=== PATIENT | female | born 1985 | race American Indian/Alaskan Native ===

== ENCOUNTER 2017-04-18 22:03 | Emergency (ER) | payer OTHER ==
[2017-04-18 22:35] VITALS: BMI 33.7
[2017-04-18 22:48] VITALS: RESP 18; TEMP 98.2
--- NOTE | 2017-04-18 22:51 | ED PDOC ---
Arrival/HPI <Nayana Oakes - Last Filed: 04/19/17 00:16> <Umang Ruiz - Last Filed: 04/19/17 00:50> - General Chief Complaint: Headache Time Seen by Provider: 04/18/17 22:12 - History of Present Illness Narrative History of Present Illness (Text): 04/18/17 22:51 32 y/o F w/ PMHx of miscarriage 4mons ago presents to the ED w/ c/o Headache x 3days and abd pain x1wk. Pt reports abd cramping x1wk. pain intermittent, accompanied by groin pressure. pt reports cramping worsens w/ urination especially when w/holding urination for any length of time. Pt admits to increased urgency w/o increased frequency or dysuria. Pt also admits to constipation w/ last BM 3days ago, which is unusual for the pt. Pt reports headache x3days. Pt has Hx of headaches but never this long or this severe. Admits to assoc. sensitivity to light and sound. Pain localized to L frontal. Pain is mild at baseline w/ intermittent spikes in intensity. associated nausea , dizziness, and sun spots during peaks. Pt has not taken anything for the pain due to possible . LMP 03/20/17. (Nayana Oakes) Past Medical History - Provider Review Nursing Documentation Reviewed: Yes - Infectious Disease Hx of Infectious Diseases: None - Genitourinary/Gynecological Other/Comment: Ovarian Cyst - Psychiatric Hx Substance Use: No - Surgical History Other/Comment: miscarriage - Anesthesia Hx Anesthesia: No <Nayana Oakes - Last Filed: 04/19/17 00:16> Family/Social History Family/Social History: No Known Family HX Smoking Status: Light Smoker < 10 Cigarettes Daily Hx Alcohol Use: Yes Frequency of alcohol use: Socially Hx Substance Use: No <Nayana Oakes - Last Filed: 04/19/17 00:16> Allergies/Home Meds <Nayana Oakes - Last Filed: 04/19/17 00:16> <Umang Ruiz - Last Filed: 04/19/17 00:50> Allergies/Adverse Reactions: Allergies No Known Allergies Allergy (Verified 04/18/17 22:19) Home Medications: Home Meds Medication Instructions Recorded Confirmed No Known Home Med 04/18/17 04/18/17 Review of Systems - Physician Review All systems were reviewed & negative as marked: Yes - Review of Systems Eyes: absent: Vision Changes Cardiovascular: absent: Chest Pain <Nayana Oakes - Last Filed: 04/19/17 00:16> Physical Exam Vital Signs Reviewed: Yes Temperature: Afebrile Blood Pressure: Hypertensive Pulse: Regular Respiratory Rate: Normal Appearance: Positive for: Well-Appearing, Comfortable Pain Distress: Mild Mental Status: Positive for: Alert and Oriented X 3 - Systems Exam Head: Present: Atraumatic, Normocephalic Pupils: Present: PERRL Extroacular Muscles: Present: EOMI Mouth: Present: Moist Mucous Membranes Neck: Present: Normal Range of Motion Respiratory/Chest: Present: Clear to Auscultation, Good Air Exchange. No: Respiratory Distress, Accessory Muscle Use Cardiovascular: Present: Regular Rate and Rhythm, Normal S1, S2. No: Murmurs Abdomen: Present: Tenderness (minimal TTP suprapubic). No: Distention, Peritoneal Signs Upper Extremity: Present: Normal Inspection Lower Extremity: Present: Normal Inspection Neurological: Present: GCS=15, CN II-XII Intact, Speech Normal Skin: Present: Warm, Dry, Normal Color Psychiatric: Present: Alert, Oriented x 3, Normal Affect, Normal Mood <Nayana Oakes - Last Filed: 04/19/17 00:16> Medical Decision Making - Lab Interpretations I have reviewed the lab results: Yes - RAD Interpretation [employer]el Drawing Operator: Radiologist <Nayana Oakes - Last Filed: 04/19/17 00:16> - Lab Interpretations I have reviewed the lab results: Yes - RAD Interpretation [employer] Dowel Drawing Operator: Radiologist <Umang Ruiz - Last Filed: 04/19/17 00:50> ED Course and Treatment: 04/18/17 23:16 32 y/o F w/ headache and abd pain. - CBC, CMP, lipase - Urinalysis - Urine preganacy (+) - B-HCG quant - transvaginal US (Nayana Oakes) Pt seen and evaluated with resident. Pt presented complaining of headache for 3 days and abdominal cramping for 1 week. Aware and agree with HPI, clinical findings, plan, and management. Plan: -- Transvaginal US -- Labs, beta-HCG, lipase -- Urinalysis, urine culture -- IV fluids -- Reglan -- Benadryl -- Reassess and disposition (Umang Ruiz) - Lab Interpretations Lab Results: 04/18/17 23:05 04/18/17 23:05 Lab Results 04/18/17 23:05: Beta HCG, Quant 255.79 H 04/18/17 23:05: Sodium 138, Potassium 4.0, Chloride 104, Carbon Dioxide 25, Anion Gap 13, BUN 15, Creatinine 0.9, Est GFR ( Amer) > 60, Est GFR (Non- Af Amer) > 60, Random Glucose 92, Calcium 9.9, Total Bilirubin 0.4, AST 21, ALT 22, Alkaline Phosphatase 82, Total Protein 8.2, Albumin 4.6, Globulin 3.7, Albumin/Globulin Ratio 1.2, Lipase 240 04/18/17 23:05: WBC 9.7, RBC 4.46, Hgb 14.0, Hct 39.0, MCV 87.4, MCH 31.4, MCHC 35.9, RDW 12.7, Plt Count 268, MPV 8.9, Gran % 58.3, Lymph % (Auto) 35.5 H, [place] % (Auto) 3.5, Eos % (Auto) 2.5, Baso % (Auto) 0.2, Gran # 5.68, Lymph # 3.5 H, [place] # 0.3, Eos # 0.2, Baso # 0.02 04/18/17 23:00: Urine Color Yellow, Urine Appearance Clear, Urine pH 6.5, Ur Specific [place] 1.020, Urine Protein Negative, Urine Glucose (UA) Negative, Urine Ketones Negative, Urine Blood Negative, Urine Nitrate Negative, Urine Bilirubin Negative, Urine Urobilinogen 1.0 H, Ur Leukocyte Esterase Trace H, Urine RBC 0 - 2, Urine WBC 2 - 5, Ur Epithelial Cells 3 - 4, Urine Bacteria Occ - RAD Interpretation Narrative RAD Interpretations (Text): 04/19/17 00:00 US results: FINDINGS: The uterus measures 10 x 5 x 7 cm. There is a posterior uterine fibroid to the left of midline measuring 4 x 2.5 x 3 cm. No intrauterine gestational sac. The endometrium measures 19 mm. The right ovary is not visualized secondary to surgical removal. The left ovary is normal. Flow is demonstrated in the left ovary. No adnexal masses. There is no significant free fluid. IMPRESSION: No intra-or extrauterine gestational sac. In a patient with a positive test, differential diagnosis includes early IUP, AB, and ectopic . Short term serial beta- hCG levels are recommended along with follow-up ultrasound. (Nayana Oakes) Radiology Orders: 04/18/17 23:00 OB TRANSVAGINAL [US] Urgent - Medication Orders Current Medication Orders: Discontinued Medications Diphenhydramine HCl (Benadryl) 25 mg IVP STAT STA Stop: 04/18/17 22:59 Last Admin: 04/18/17 23:52 Dose: 25 mg Sodium Chloride (Sodium Chloride 0.9%) 500 mls @ 999 mls/hr IV .Q31M STA Stop: 04/18/17 23:28 Last Admin: 04/18/17 23:52 Dose: 999 mls/hr Metoclopramide HCl (Reglan) 10 mg IVP STAT STA Stop: 04/18/17 22:59 Last Admin: 04/18/17 23:52 Dose: 10 mg - PA / SILO OPERATOR / Resident Statement SHAD has reviewed & agrees with the documentation as recorded. SHAD has examined the patient and agrees with the treatment plan. <Umang Ruiz - Last Filed: 04/19/17 00:50> Disposition/Present on Arrival - Present on Arrival Any Indicators Present on Arrival: No History of DVT/PE: No History of Uncontrolled Diabetes: No Urinary Catheter: No History of Decub. Ulcer: No History Surgical Site Infection Following: None - Disposition Have Diagnosis and Disposition been Completed?: Yes Disposition Time: 00:15 Patient Plan: Discharge <Nayana Oakes - Last Filed: 04/19/17 00:16> <Umang Ruiz - Last Filed: 04/19/17 00:50> - Disposition Diagnosis: Disposition: HOME/ ROUTINE Patient Problems: Current Active Problems Problem Status Onset Acute Condition: IMPROVED Discharge Instructions (ExitCare): (ED) Additional Instructions: Follow up w/ Associate Consulting Engineer this week Tylenol PRN headache
[2017-04-18] MEDS ORDERED: Sodium Chloride 0.9% 500 ML IV STA (22:58)
[2017-04-18] MEDS ORDERED: DiphenhydrAMINE 50 mg/ml Inj IVP STA (22:58)
[2017-04-18 23:13] LABS: ADD MANUAL DIFF? NO
[2017-04-18 23:19] LABS: BASO # 0.02 K/mm3 (0.0-2.0); BASO % 0.2 % (0.0-3.0); EOS # 0.2 (0.0-0.7); EOS % 2.5 % (1.5-5.0); GRAN # 5.68 (1.4-6.5); GRAN % 58.3 % (50.0-68.0); LYMPH # 3.5 (1.2-3.4); LYMPH % 35.5 % (22.0-35.0); MEAN CELL VOLUME 87.4 fL (80.0-105.0); MEAN CORPUSCULAR HEMOGLOBIN 31.4 pg (25.0-35.0); MEAN CORPUSCULAR HGB CONC 35.9 g/dl (31.0-37.0); MEAN PLATELET VOLUME 8.9 fl (7.0-11.0); MONO # 0.3 (0.1-0.6); MONO % 3.5 % (1.0-6.0); PLATELET COUNT 268 10^3/uL (120.0-450.0); RED CELL DISTRIBUTION WIDTH 12.7 % (11.5-14.5); WHITE BLOOD COUNT 9.7 10^3/ul (4.5-11.0)
[2017-04-18 23:26] LABS: ALB/GLOB RATIO 1.2 (1.1-1.8); ALKALINE PHOSPHATASE 82 U/L (38-133); ALT/SGPT 22 U/L (7-56); AST/SGOT 21 U/L (15-39); BILIRUBIN,TOTAL 0.4 mg/dL (0.2-1.3); BLOOD UREA NITROGEN 15 mg/dL (7-21); CALCIUM 9.9 mg/dL (8.4-10.5); CARBON DIOXIDE 25 mmol/L (21-33); CHLORIDE 104 mmol/L (98-107); GFR AFRICAN-AMERICAN > 60; GLUCOSE,RANDOM 92 mg/dL (70-110); LIPASE 240 U/L (23-300); SODIUM 138 mmol/L (132-148); TOTAL PROTEIN 8.2 g/dL (5.8-8.3)
[2017-04-18 23:35] LABS: PH,URINE 6.5 (4.7-8.0); URINE BILIRUBIN NEGATIVE (NEGATIVE); URINE BLOOD NEGATIVE (NEGATIVE); URINE GLUCOSE (UA) NEGATIVE (NEGATIVE); URINE KETONE NEGATIVE (NEGATIVE); URINE LEUKOCYTE ESTERASE TRACE Leu/uL (NEGATIVE); URINE PROTEIN NEGATIVE mg/dL (<30 mg/dL)
[2017-04-18 23:38] LABS: URINE APPEARANCE CLEAR (CLEAR); URINE COLOR YELLOW (YELLOW)
[2017-04-18 23:53] LABS: URINE BACTERIA OCC (NEG); URINE RBC 0 - 2 /hpf (0-2)
--- NOTE | 2017-04-18 23:59 | US ---
EXAM: US , Transvaginal CLINICAL HISTORY: 32 years old, female; Pain; Other: Pelvic pain/spotting/+ucg; Gestational age or lmp: 03/20/2017; Prior surgery; Surgery date: 6+ months; Surgery type: Rt ov removed; Additional info: Positive urine pregnanacy; Abd pain TECHNIQUE: Real-time transvaginal obstetrical ultrasound of the maternal pelvis and a first trimester with image documentation. Transvaginal imaging was used for better evaluation of the fetus and adnexa. EXAM DATE/TIME: 04/18/2017 11:00 PM COMPARISON: No relevant prior studies available. FINDINGS: The uterus measures 10 x 5 x 7 cm. There is a posterior uterine fibroid to the left of midline measuring 4 x 2.5 x 3 cm. No intrauterine gestational sac. The endometrium measures 19 mm. The right ovary is not visualized secondary to surgical removal. The left ovary is normal. Flow is demonstrated in the left ovary. No adnexal masses. There is no significant free fluid. IMPRESSION: No intra-or extrauterine gestational sac. In a patient with a positive test, differential diagnosis includes early IUP, AB, and ectopic . Short term serial beta-hCG levels are recommended along with follow-up ultrasound.
[2017-04-19 01:34] VITALS: BP 139/89; PULSE 75; O2SAT 99
== END 2017-04-19 01:36 | disposition home or self-care (01) ==
LOC: ED 22:03
DX: O26.891 Other specified pregnancy related conditions, first trimester (principal); R51 Headache
CPT/HCPCS: 76817; 80053; 81001; 83690; 84702; 85025; 87086; 96374; 96375; 99285; J1200; J2765; J7040

== ENCOUNTER 2017-05-10 23:22 | Emergency (ER) | payer OTHER ==
[2017-05-10 23:30] VITALS: BMI 33.6
--- NOTE | 2017-05-10 23:56 | ED PDOC ---
"Arrival/HPI - General Chief Complaint: Abdominal Pain Time Seen by Provider: 05/10/17 23:38 Historian: Patient - History of Present Illness Narrative History of Present Illness (Text): 05/10/17 23:55 This 32 yo , , LMP 03/20/17, pmh herpes, presents to this ED c/o suprapubic/pelvic pain x 22 hours. Patient stated she notice trace of blood after she wiped herself after urination. Time/Duration: Other (22 hours) Quality: Aching Context: Home Past Medical History - Provider Review Nursing Documentation Reviewed: Yes - Infectious Disease Hx of Infectious Diseases: None - Cardiac Hx Cardiac Disorders: No - Genitourinary/Gynecological Other/Comment: Ovarian Cyst - Psychiatric Hx Substance Use: No - Surgical History Other/Comment: miscarriage/ovarian cyst 18 yrs - Anesthesia Hx Anesthesia: No Family/Social History - Physician Review Nursing Documentation Reviewed: Yes Family/Social History: No Known Family HX Smoking Status: Light Smoker < 10 Cigarettes Daily Hx Alcohol Use: No Hx Substance Use: No Allergies/Home Meds Allergies/Adverse Reactions: Allergies No Known Allergies Allergy (Verified 05/10/17 23:29) Home Medications: Home Meds Medication Instructions Recorded Confirmed valACYclovir [Valtrex] 1 gm PO DAILY 05/10/17 Review of Systems - Review of Systems Constitutional: Normal. absent: Fatigue, Weight Change, Fevers, Night Sweats Eyes: Normal ENT: Normal Respiratory: Normal Cardiovascular: Normal Gastrointestinal: Normal Genitourinary Female: Hematuria, Other (see hpi). absent: Dysuria, Frequency, Vaginal Discharge Musculoskeletal: Normal Skin: Normal Neurological: Normal Endocrine: Normal Hemo/Lymphatic: Normal Psychiatric: Normal Physical Exam Vital Signs Temp Pulse Resp BP Pulse Ox 05/10/17 23:50 98.1 F 99 H 16 99 05/10/17 23:36 98.1 F 99 H 18 113/78 97 Temperature: Afebrile Blood Pressure: Normal Pulse: Regular Respiratory Rate: Normal Appearance: Positive for: Well-Appearing, Non-Toxic, Comfortable Pain Distress: None Mental Status: Positive for: Alert and Oriented X 3 - Systems Exam Head: Present: Atraumatic, Normocephalic Pupils: Present: PERRL Extroacular Muscles: Present: EOMI Conjunctiva: Present: Normal Mouth: Present: Moist Mucous Membranes Neck: Present: Normal Range of Motion Respiratory/Chest: Present: Clear to Auscultation, Good Air Exchange. No: Respiratory Distress, Accessory Muscle Use Cardiovascular: Present: Regular Rate and Rhythm, Normal S1, S2. No: Murmurs Abdomen: Present: Normal Bowel Sounds. No: Tenderness, Distention, Peritoneal Signs Genitourinary/Pelvic Exam: Present: Other (deferred) Back: Present: Normal Inspection. No: CVA Tenderness, Midline Tenderness, Paraspinal Tenderness Upper Extremity: Present: Normal Inspection, Normal ROM, NORMAL PULSES, Neurovascularly Intact, Capillary Refill < 2s. No: Cyanosis, Edema Lower Extremity: Present: Normal Inspection, NORMAL PULSES, Normal ROM, Neurovascularly Intact, Capillary Refill < 2 s. No: Edema Neurological: Present: GCS=15, CN II-XII Intact, Speech Normal, Motor Func Grossly Intact, Normal Sensory Function, Normal Cerebellar Funct, Gait Normal Skin: Present: Warm, Dry, Normal Color. No: Rashes Psychiatric: Present: Alert, Oriented x 3, Normal Insight, Normal Concentration Medical Decision Making ED Course and Treatment: 05/11/17 02:22 Patient is resting comfortably, and is in no acute distress. Patient was instructed to follow up with *physician/clinic* in 1-2 days for further evaluation. Patient was recommended to see her C UNIX DEVELOPER in 1-2 days. To return to emergency if symptoms worsen, [facility] will be ideal since this is the [facility] her [employer] Dr. Lomas practice. Re-evaluation Time: 02:22 Reassessment Condition: Re-examined, Improved - Lab Interpretations Lab Results: 05/11/17 00:15 05/11/17 00:15 Lab Results 05/11/17 00:15: Blood Type B POSITIVE, Antibody Screen Negative, BBK History Checked Pending 05/11/17 00:15: Beta HCG, Quant [id number] H 05/11/17 00:15: Sodium 136, Potassium 3.9, Chloride 103, Carbon Dioxide 24, Anion Gap 13, BUN 18, Creatinine 1.2, Est GFR ( Amer) > 60, Est GFR (Non- Af Amer) 52, Random Glucose 89, Calcium 9.4, Total Bilirubin 0.4, AST 20, ALT 24 , Alkaline Phosphatase 93, Total Protein 7.5, Albumin 4.1, Globulin 3.4, Albumin /Globulin Ratio 1.2 05/11/17 00:15: PT 10.3, INR 0.95, APTT 28.3 05/11/17 00:15: WBC 8.9, RBC 4.45, Hgb 14.1, Hct 40.0, MCV 89.9, MCH 31.7, MCHC 35.3, RDW 13.1, Plt Count 223, MPV 8.7, Gran % 59.6, Lymph % (Auto) 34.0, [place] % (Auto) 3.6, Eos % (Auto) 2.6, Baso % (Auto) 0.2, Gran # 5.31, Lymph # 3.0, [place] # 0.3, Eos # 0.2, Baso # 0.02 05/10/17 23:59: Urine Color Yellow, Urine Appearance Sl cloudy, Urine pH 6.5, Ur Specific [place] 1.020, Urine Protein Negative, Urine Glucose (UA) Negative, Urine Ketones Negative, Urine Blood Moderate H, Urine Nitrate Negative, Urine Bilirubin Negative, Urine Urobilinogen 0.2, Ur Leukocyte Esterase Trace H, Urine RBC 5 - 10, Urine WBC 1 - 3, Ur Epithelial Cells 0 - 2, Urine Bacteria Rare, Urine HCG, Qual Positive - RAD Interpretation Narrative RAD Interpretations (Text): 05/11/17 01:40 [facility] Final Radiology Report Call: [phone] assistance Online chat: [email or web address] Patient Name: RASHAD STEVENSON Institution Name: [place] [address] Study Type: US TRANSVAGINALUS TRANSABD FIRST TRIMESTER FIRST FINDINGS: Gestation: Single live intrauterine gestation. heart rate of 114 beats per minute. [place]-rump length of 0.64 cm, correlating with gestational age of 6 weeks 3 days. Uterus/cervix: No subchorionic hemorrhage. No cervical dilatation or effacement. 3.9 x 2.4 x 3.8 cm posterior uterine mass. Ovaries: RIGHT ovary: Surgically absent. LEFT ovary: Normal. No adnexal masses. Free fluid: No significant free fluid. IMPRESSION: 1. Single live intrauterine gestation. 2. Probable fibroid. 3. Incidental/non-acute findings are described above. EXAM: US , Transvaginal CLINICAL HISTORY: RASHAD STEVENSON | Final Radiology Report FINDINGS: Gestation: Single live intrauterine gestation. heart rate of 114 beats per minute. [place]-rump length of 0.64 cm, correlating with gestational age of 6 weeks 3 days. Uterus/cervix: No subchorionic hemorrhage. No cervical dilatation or effacement. 3.9 x 2.4 x 3.8 cm posterior uterine mass. Ovaries: RIGHT ovary: Surgically absent. LEFT ovary: Normal. No adnexal masses. Free fluid: No significant free fluid. IMPRESSION: 1. Single live intrauterine gestation. 2. Probable fibroid. 3. Incidental/non-acute findings are described above. Thank you for allowing us to participate in the care of your patient. Dictated and Authenticated by: Sacha Leyva MD 05/11/2017 12:58 AM Eastern Time (US & [place]) Radiology Orders: 05/10/17 23:54 OB TRANSVAGINAL [US] Stat - Medication Orders Current Medication Orders: Discontinued Medications Cephalexin Monohydrate (Keflex) 500 mg PO STAT STA PRN Reason: Protocol Stop: 05/11/17 01:42 Last Admin: 05/11/17 02:02 Dose: 500 mg Disposition/Present on Arrival - Present on Arrival Any Indicators Present on Arrival: No History of DVT/PE: No History of Uncontrolled Diabetes: No Urinary Catheter: No History of Decub. Ulcer: No History Surgical Site Infection Following: None - Disposition Have Diagnosis and Disposition been Completed?: Yes Diagnosis: Vaginal bleeding before 22 weeks gestation, bradycardia, Pelvic cramping Disposition: HOME/ ROUTINE Disposition Time: 02:24 Patient Plan: Discharge Condition: GOOD Discharge Instructions (ExitCare): First Trimester Vaginal Bleed (ED) Additional Instructions: Call private C UNIX DEVELOPER doctor in 1-2 days for revaluation. Take medication as instructed. Consider repeat ultrasound to check heart rate. Return to emergency if symptoms worsen. Prescriptions: Cephalexin [cephalexin] 500 mg PO BID #10 cap Multivit/Folic Acid/I [ Plus] 1 tab PO DAILY #30 tab Referrals: [facility] [Outside] - [facility] with [facility] [Outside] - Follow up with primary Forms: WORK NOTE"
[2017-05-11 00:22] LABS: ADD MANUAL DIFF? NO
[2017-05-11 00:31] LABS: BASO # 0.02 K/mm3 (0.0-2.0); BASO % 0.2 % (0.0-3.0); EOS # 0.2 (0.0-0.7); EOS % 2.6 % (1.5-5.0); GRAN # 5.31 (1.4-6.5); GRAN % 59.6 % (50.0-68.0); MEAN CELL VOLUME 89.9 fL (80.0-105.0); MEAN CORPUSCULAR HEMOGLOBIN 31.7 pg (25.0-35.0); MEAN CORPUSCULAR HGB CONC 35.3 g/dl (31.0-37.0); MEAN PLATELET VOLUME 8.7 fl (7.0-11.0); MONO # 0.3 (0.1-0.6); MONO % 3.6 % (1.0-6.0); PLATELET COUNT 223 10^3/uL (120.0-450.0); RED CELL DISTRIBUTION WIDTH 13.1 % (11.5-14.5); WHITE BLOOD COUNT 8.9 10^3/ul (4.5-11.0)
[2017-05-11 00:35] LABS: ALB/GLOB RATIO 1.2 (1.1-1.8); ALKALINE PHOSPHATASE 93 U/L (38-133); ALT/SGPT 24 U/L (7-56); AST/SGOT 20 U/L (15-39); BILIRUBIN,TOTAL 0.4 mg/dL (0.2-1.3); BLOOD UREA NITROGEN 18 mg/dL (7-21); CALCIUM 9.4 mg/dL (8.4-10.5); CARBON DIOXIDE 24 mmol/L (21-33); CHLORIDE 103 mmol/L (98-107); GFR AFRICAN-AMERICAN > 60; GLUCOSE,RANDOM 89 mg/dL (70-110); POTASSIUM 3.9 mmol/L (3.6-5.0); SODIUM 136 mmol/L (132-148); TOTAL PROTEIN 7.5 g/dL (5.8-8.3)
[2017-05-11 00:36] LABS: PH,URINE 6.5 (4.7-8.0); URINE BILIRUBIN NEGATIVE (NEGATIVE); URINE BLOOD MODERATE (NEGATIVE); URINE GLUCOSE (UA) NEGATIVE (NEGATIVE); URINE KETONE NEGATIVE (NEGATIVE); URINE LEUKOCYTE ESTERASE TRACE Leu/uL (NEGATIVE); URINE PROTEIN NEGATIVE mg/dL (<30 mg/dL); URINE UROBILINOGEN 0.2 E.U./dL (<1 E.U./dL)
[2017-05-11 00:38] LABS: INR 0.95 (0.93-1.08); PARTIAL THROMBOPLASTIN TIME 28.3 Seconds (23.7-30.8)
[2017-05-11 00:39] LABS: URINE APPEARANCE SL CLOUDY (CLEAR); URINE COLOR YELLOW (YELLOW)
[2017-05-11 00:55] LABS: URINE EPITHELIAL CELLS 0 - 2 /hpf (0-5)
[2017-05-11 00:56] LABS: URINE BACTERIA RARE (NEG)
--- NOTE | 2017-05-11 00:59 | US ---
EXAM: US First Trimester, Transabdominal CLINICAL HISTORY: 32 years old, female; Pain; Other: Cramping and spotting; Gestational age or lmp: 03/20/2017; ; Prior surgery; Surgery date: 6+ months; Surgery type: Rt ovary removed 20 yrs; Additional info: Pelvic pain TECHNIQUE: Real-time transabdominal obstetrical ultrasound of the maternal pelvis and a first trimester with image documentation. COMPARISON: US - OB TRANSVAGINAL 04/18/2017 11:15:03 PM FINDINGS: Gestation: Single live intrauterine gestation. heart rate of 114 beats per minute. [place]-rump length of 0.64 cm, correlating with gestational age of 6 weeks 3 days. Uterus/cervix: No subchorionic hemorrhage. No cervical dilatation or effacement. 3.9 x 2.4 x 3.8 cm posterior uterine mass. Ovaries: RIGHT ovary: Surgically absent. LEFT ovary: Normal. No adnexal masses. Free fluid: No significant free fluid. IMPRESSION: 1. Single live intrauterine gestation. 2. Probable fibroid. 3. Incidental/non-acute findings are described above. EXAM: US , Transvaginal CLINICAL HISTORY: 32 years old, female; Pain; Other: Cramping and spotting; Gestational age or lmp: 03/20/2017; ; Prior surgery; Surgery date: 6+ months; Surgery type: Rt ovary removed 20 yrs; Additional info: Pelvic pain TECHNIQUE: Real-time transvaginal obstetrical ultrasound of the maternal pelvis and a first trimester with image documentation. Transvaginal imaging was used for better evaluation of the fetus and adnexa. COMPARISON: US - OB TRANSVAGINAL 04/18/2017 11:15:03 PM FINDINGS: Gestation: Single live intrauterine gestation. heart rate of 114 beats per minute. [place]-rump length of 0.64 cm, correlating with gestational age of 6 weeks 3 days. Uterus/cervix: No subchorionic hemorrhage. No cervical dilatation or effacement. 3.9 x 2.4 x 3.8 cm posterior uterine mass. Ovaries: RIGHT ovary: Surgically absent. LEFT ovary: Normal. No adnexal masses. Free fluid: No significant free fluid.
[2017-05-11 02:54] VITALS: BP 123/76; PULSE 86; RESP 18; TEMP 97.8; O2SAT 98
== END 2017-05-11 02:56 | disposition home or self-care (01) ==
LOC: ED 23:22
DX: O20.9 Hemorrhage in early pregnancy, unspecified (principal); O76 Abnormality in fetal heart rate and rhythm complicating labor and delivery; Z3A.01 Less than 8 weeks gestation of pregnancy; R10.2 Pelvic and perineal pain